=== PATIENT | female | born 1965 | race Two or more races ===

== ENCOUNTER 2022-01-18 11:21 | Emergency (ER) | payer MEDICARE, MEDICAID ==
[~2022-01-18] VITALS: Ht 160 cm; Wt 87.1 kg
[2022-01-18 11:36] VITALS: BP 148/97
[2022-01-18] MEDS ORDERED: CLINDAMYCIN 600 MG/4 ML VL IM ONE (12:00)
[2022-01-18] MEDS ORDERED: cefTRIAXone W LIDOCAINE 1 GM IM IM ONE (12:00)
[2022-01-18] MEDS ORDERED: CLIN300C8 PO (12:21)
[2022-01-18] MEDS ORDERED: CEPH-509 PO (12:21)
== END 2022-01-18 13:57 | disposition home or self-care (01) ==
LOC: ER 11:21
DX: L03.031 Cellulitis of right toe (principal); L03.032 Cellulitis of left toe; I11.0 Hypertensive heart disease with heart failure; I50.9 Heart failure, unspecified; E11.9 Type 2 diabetes mellitus without complications; Z88.0 Allergy status to penicillin
CPT/HCPCS: 96372; 99284; J0696

== ENCOUNTER 2023-06-27 15:07 | Emergency (ER) | payer MEDICARE, MEDICAID ==
[~2023-06-27] VITALS: Ht 160 cm; Wt 90.0 kg
[~2023-06-27 15:07] MED LIST: CEPH-509 PO; CLIN300C70 PO
[2023-06-27] MEDS ORDERED: methylPREDNISolone SOD SUCC 125 MG/2 ML VL IV ONE (15:30)
[2023-06-27] MEDS ORDERED: ALBUTEROL SULF 2.5 MG/0.5ML(0.5%) NEB SOLN HHN ONE (15:30)
[2023-06-27] MEDS ORDERED: IPRATROPIUM BROM 0.5 MG/2.5ML INH SOL HHN ONE (15:30)
[2023-06-27 15:51] LABS: Basophils # (auto) 0.1 10 ^3/uL (0-0.2); Basophils % (auto) 0.5 % (0.0-2.0); Eosinophils # (auto) 0.2 10 ^3/uL (0-0.8); Eosinophils % (auto) 2.3 % (0.0-7.0); Hemoglobin 14.9 g/dL (12.2-16.2); Lymphocytes % (auto) 18.9 % (10.0-50.0); Mean Corpuscular Hemoglobin 29.4 pg (28.0-32.0); Mean Corpuscular Hgb Conc. 33.1 g/dL (32.0-36.0); Mean Corpuscular Volume 88.8 fL (80.0-100.0); Monocytes # (auto) 0.6 10 ^3/uL (0-1.3); Monocytes % (auto) 5.8 % (0.0-12.0); Neutrophils # (auto) 7.5 10 ^3/uL (1.6-8.6); Neutrophils % (auto) 72.5 % (37.0-80.0); Nucleated Red Blood Cells % 0.1 %; Red Blood Cells 5.07 10^6/uL (4.0-5.20); Red Cell Distribution Width 14.9 % (11.8-14.3); White Blood Cell 10.4 10^3/uL (4.4-10.8)
[2023-06-27 16:11] LABS: Alanine Aminotransferase 107 U/L (7-40); Albumin 4.5 g/dL (3.2-4.8); Alkaline Phosphatase 134 U/L (46-116); Anion Gap 6 (5-15); Aspartate Aminotransferase 69 U/L (13-40); BUN/Creatinine Ratio 9.6 (10.0-20.0); Blood Urea Nitrogen 7 mg/dL (9-23); Calcium 8.9 mg/dL (8.7-10.4); Carbon Dioxide 31 mmol/L (20-30); Chloride 103 mmol/L (98-107); Glucose 95 mg/dL (74-106); Magnesium 1.9 mg/dL (1.6-2.6); Potassium 3.5 mmol/L (3.5-5.1); Sodium 140 mmol/L (136-145)
[2023-06-27 16:12] LABS: Bilirubin, Total 0.6 mg/dL (0.2-1.0); Total Protein 7.8 g/dL (5.7-8.2)
[2023-06-27 16:31] LABS: Urine WBC None Seen /hpf (0 - 5)
[2023-06-27 16:51] LABS: Urine Bacteria NONE SEEN /hpf (None Seen); Urine Blood Negative /uL (Negative); Urine Clarity Clear (Clear); Urine Color Colorless (Yellow); Urine Hyaline Cast FEW /lpf (0 - 2); Urine Protein, UAD Negative (Negative); Urine Specific Gravity 1.007 (1.001-1.035); Urine Urobilinogen Normal (Negative)
[2023-06-27] MEDS ORDERED: AZIT1POW PO (17:13)
[2023-06-27] MEDS ORDERED: METH4PAK PO (17:13)
[2023-06-27] MEDS ORDERED: ALBUAER3 IN (17:13)
[2023-06-27 20:25] VITALS: BP 166/87; PULSE 77; RESP 18; TEMP 98.9; O2SAT 96
[2023-06-27] MEDS ORDERED: methylPREDNISolone SOD SUCC 125 MG/2 ML VL IM ONE (20:30)
[2023-06-27] MEDS: cloNIDine HCL 0.1 MG TAB PO ONE ×2 (20:32→20:34)
== END 2023-06-27 20:46 | disposition home or self-care (01) ==
LOC: ER 15:07
DX: J20.9 Acute bronchitis, unspecified (principal); I11.0 Hypertensive heart disease with heart failure; I50.9 Heart failure, unspecified; E11.9 Type 2 diabetes mellitus without complications; E78.5 Hyperlipidemia, unspecified; R07.89 Other chest pain
CPT/HCPCS: 36415; 71046; 80053; 81001; 83735; 83880; 85025; 93005; 94644; 96372; 99285; J2930; J7644

== ENCOUNTER 2023-07-02 10:05 | Inpatient (IN) | payer BC, MEDICAID ==
[2023-07-02] VITALS (8 sets, daily range): BP systolic 146; BP diastolic 70; PULSE 67–76; RESP 18–23; TEMP 98; O2SAT 94–99
[~2023-07-02] VITALS: Ht 170.2 cm; Wt 108.8 kg
[~2023-07-02 10:05] MED LIST changes: +ALBUAER3 IN; +AZIT1POW PO; +METH4PAK PO
[2023-07-02] MEDS ORDERED: NITROGLYCERIN 2% OINT 1GM PKG TD ONE (10:30)
[2023-07-02 10:33] LABS: Basophils # (auto) 0 10 ^3/uL (0-0.2); Basophils % (auto) 0.3 % (0.0-2.0); Eosinophils # (auto) 0 10 ^3/uL (0-0.8); Eosinophils % (auto) 0.1 % (0.0-7.0); Hemoglobin 14.7 g/dL (12.2-16.2); Lymphocytes # (auto) 1.7 10 ^3/uL (0.4-5.4); Lymphocytes % (auto) 12.5 % (10.0-50.0); Mean Corpuscular Hemoglobin 29.5 pg (28.0-32.0); Mean Corpuscular Hgb Conc. 32.8 g/dL (32.0-36.0); Mean Corpuscular Volume 89.9 fL (80.0-100.0); Monocytes % (auto) 7.2 % (0.0-12.0); Neutrophils # (auto) 10.6 10 ^3/uL (1.6-8.6); Neutrophils % (auto) 79.9 % (37.0-80.0); Red Cell Distribution Width 14.9 % (11.8-14.3); White Blood Cell 13.3 10^3/uL (4.4-10.8)
[2023-07-02] MEDS ORDERED: methylPREDNISolone SOD SUCC 125 MG/2 ML VL IV ONE (10:45)
[2023-07-02] MEDS ORDERED: cloNIDine HCL 0.1 MG TAB PO ONE (10:45)
[2023-07-02 10:52] LABS: INR 1.03 (0.9-1.15); Prothrombin Time 10.8 sec (9.3-11.8)
[2023-07-02 10:58] LABS: Alanine Aminotransferase 109 U/L (7-40); Albumin 4.2 g/dL (3.2-4.8); Alkaline Phosphatase 108 U/L (46-116); Anion Gap 8 (5-15); Aspartate Aminotransferase 37 U/L (13-40); Blood Urea Nitrogen 14 mg/dL (9-23); Calcium 9.3 mg/dL (8.5-10.1); Carbon Dioxide 27 mmol/L (20-30); Chloride 104 mmol/L (98-107); Glucose 182 mg/dL (74-106); Potassium 4.1 mmol/L (3.5-5.1); Sodium 139 mmol/L (136-145)
[2023-07-02 10:59] LABS: Bilirubin, Total 0.3 mg/dL (0.2-1.0); Total Protein 7.1 g/dL (5.7-8.2)
[2023-07-02] MEDS ORDERED: IOHEXOL 350 MG/ML 100ML IJ ONE (11:27)
[2023-07-02 14:03] LABS: Amphetamine Screen, Urine Neg (NEGATIVE)
[2023-07-02 14:04] LABS: Barbiturate Scree,Urine Neg (NEGATIVE); Benzodiazephine Screen, Urine Neg (NEGATIVE); Cannabinoid Screen, Urine Neg (NEGATIVE); Cocaine Screen, Urine Neg (NEGATIVE); Opiate Scree,Urine Neg (NEGATIVE); Phencyclidine Screen, Urine Neg (NEGATIVE)
[2023-07-02 14:18] LABS: Urine Bacteria NONE SEEN /hpf (None Seen); Urine Blood Negative /uL (Negative); Urine Clarity Clear (Clear); Urine Color Yellow (Yellow); Urine Protein, UAD 1+ (Negative); Urine Specific Gravity 1.022 (1.001-1.035); Urine Urobilinogen Normal (Negative); Urine WBC 1 /hpf (0 - 5); Urine pH 6.5 (5.0-8.0)
[2023-07-02] MEDS ORDERED: DOCUSATE SOD 100 MG CAP PO PRN (14:30)
[2023-07-02] MEDS ORDERED: ONDANSETRON HCL 4 MG/2 ML VIAL IV PRN (14:30)
[2023-07-02] MEDS ORDERED: DEXTROSE (50%) 50ML SYRG IV PRN (14:30)
[2023-07-02] MEDS: InsuLIN REG 1unit/0.01ml Soln (100units/ml) SC SCH ×2 (17:52→23:37)
[2023-07-02] MEDS: ACCU-CHEK COMFORT CURVE STRIP VI SCH ×2 (17:53→23:23)
[2023-07-02] MEDS: IPRATROPIUM BROM 0.5 MG/2.5ML INH SOL NEB SCH ×2 (18:33→22:14)
[2023-07-02] MEDS: ALBUTEROL SULF 2.5 MG/0.5ML(0.5%) NEB SOLN NEB SCH ×2 (18:33→22:14)
[2023-07-02] MEDS ORDERED: CARV12.544 PO (18:59)
[2023-07-02] MEDS ORDERED: [UNRECOGNIZED DRUG - CODE] SC (18:59)
[2023-07-02] MEDS ORDERED: AZIT1POW12 PO (18:59)
[2023-07-02] MEDS ORDERED: POTA-180 PO (18:59)
[2023-07-02] MEDS ORDERED: FURO40TA4 PO (18:59)
[2023-07-02] MEDS ORDERED: METH4PAK3 PO (18:59)
[2023-07-02] MEDS ORDERED: METF-370 PO (18:59)
[2023-07-02] MEDS ORDERED: IBUP-1455 PO (18:59)
[2023-07-02] MEDS ORDERED: ALBU108A5 INH (18:59)
[2023-07-02] MEDS: hydrALAZINE HCL 20 MG/ML VL IV PRN (20:48)
[2023-07-02 22:59] LABS: COVID19 ANTIGEN SOFIA FIA NEGATIVE (NEGATIVE); Rapid Influenza A Negative (Negative); Rapid Influenza B Negative (Negative)
[2023-07-02] MEDS: methylPREDNISolone SOD SUCC 125 MG/2 ML VL IV SCH (23:34)
[2023-07-02] MEDS: CARVEDILOL 12.5 MG TAB PO SCH (23:36)
[2023-07-03] VITALS (22 sets, daily range): BP systolic 132–180; BP diastolic 72–94; PULSE 48–84; RESP 16–24; TEMP 97.3–98.8; O2SAT 91–99
[2023-07-03] MEDS: ALBUTEROL SULF 2.5 MG/0.5ML(0.5%) NEB SOLN NEB SCH ×6 (01:58→22:00)
[2023-07-03] MEDS: IPRATROPIUM BROM 0.5 MG/2.5ML INH SOL NEB SCH ×6 (01:58→22:00)
[2023-07-03] MEDS: hydrALAZINE HCL 20 MG/ML VL IV PRN ×2 (02:02→16:14)
[2023-07-03] MEDS ORDERED: TEMAZEPAM 15 MG CAP PO ONE (04:45)
[2023-07-03] MEDS: ACCU-CHEK COMFORT CURVE STRIP VI SCH ×4 (06:07→21:23)
[2023-07-03] MEDS: methylPREDNISolone SOD SUCC 125 MG/2 ML VL IV SCH ×3 (06:07→21:16)
[2023-07-03] MEDS: InsuLIN REG 1unit/0.01ml Soln (100units/ml) SC SCH ×4 (06:09→21:24)
[2023-07-03 07:17] LABS: Basophils # (auto) 0 10 ^3/uL (0-0.2); Basophils % (auto) 0.2 % (0.0-2.0); Eosinophils # (auto) 0 10 ^3/uL (0-0.8); Hematocrit 43.6 % (36.0-46.0); Hemoglobin 14.3 g/dL (12.2-16.2); Lymphocytes # (auto) 0.9 10 ^3/uL (0.4-5.4); Lymphocytes % (auto) 6.7 % (10.0-50.0); Mean Corpuscular Hemoglobin 29.9 pg (28.0-32.0); Mean Corpuscular Hgb Conc. 32.8 g/dL (32.0-36.0); Mean Corpuscular Volume 91.4 fL (80.0-100.0); Monocytes # (auto) 0.4 10 ^3/uL (0-1.3); Monocytes % (auto) 2.7 % (0.0-12.0); Neutrophils # (auto) 12.6 10 ^3/uL (1.6-8.6); Neutrophils % (auto) 90.4 % (37.0-80.0); Red Blood Cells 4.77 10^6/uL (4.0-5.20); Red Cell Distribution Width 15.1 % (11.8-14.3)
[2023-07-03 07:36] LABS: Alanine Aminotransferase 87 U/L (7-40); Alkaline Phosphatase 93 U/L (46-116); Anion Gap 11 (5-15); BUN/Creatinine Ratio 20.8 (10.0-20.0); Blood Urea Nitrogen 15 mg/dL (9-23); Calcium 9.4 mg/dL (8.5-10.1); Carbon Dioxide 25 mmol/L (20-30); Chloride 101 mmol/L (98-107); Glucose 269 mg/dL (74-106); Sodium 137 mmol/L (136-145)
[2023-07-03 07:37] LABS: Albumin 3.9 g/dL (3.2-4.8); Aspartate Aminotransferase 18 U/L (13-40); Bilirubin, Total 0.4 mg/dL (0.2-1.0); Total Protein 6.8 g/dL (5.7-8.2)
[2023-07-03] MEDS: ASPirin 81 mg TAB PO SCH (09:35)
[2023-07-03] MEDS: LOSARTAN POTASSIUM 50 MG TAB PO SCH (09:36)
[2023-07-03] MEDS: CARVEDILOL 12.5 MG TAB PO SCH ×2 (09:36→21:28)
[2023-07-03] MEDS: FUROSEMIDE 40 MG/4 ML VIAL IV SCH (09:37)
[2023-07-03] MEDS: PANTOPRAZOLE 40 MG/10 ML VIAL INJ IV SCH (09:37)
[2023-07-03] MEDS ORDERED: LORazepam 2MG/ML-1ML VIAL IV PRN (14:30)
[2023-07-03] MEDS: MORPHINE SULFATE INJ 2 MG/ml SYRG IV PRN (23:27)
[2023-07-04] VITALS (17 sets, daily range): BP systolic 110–169; BP diastolic 59–101; PULSE 52–82; RESP 16–22; TEMP 97.2–98.9; O2SAT 92–99
[2023-07-04] MEDS: hydrALAZINE HCL 20 MG/ML VL IV PRN (00:40)
[2023-07-04] MEDS: ALBUTEROL SULF 2.5 MG/0.5ML(0.5%) NEB SOLN NEB SCH ×6 (02:00→21:59)
[2023-07-04] MEDS: IPRATROPIUM BROM 0.5 MG/2.5ML INH SOL NEB SCH ×6 (02:00→21:58)
[2023-07-04] MEDS: MORPHINE SULFATE INJ 2 MG/ml SYRG IV PRN (03:42)
[2023-07-04] MEDS: methylPREDNISolone SOD SUCC 125 MG/2 ML VL IV SCH ×3 (06:07→22:00)
[2023-07-04] MEDS: ACCU-CHEK COMFORT CURVE STRIP VI SCH ×4 (06:07→21:45)
[2023-07-04] MEDS: InsuLIN REG 1unit/0.01ml Soln (100units/ml) SC SCH ×4 (06:11→21:52)
[2023-07-04] MEDS: ENOXAPARIN SOD 40 MG/0.4 ML SYRINGE SC SCH (10:32)
[2023-07-04] MEDS: PANTOPRAZOLE 40 MG/10 ML VIAL INJ IV SCH (10:32)
[2023-07-04] MEDS: FUROSEMIDE 40 MG/4 ML VIAL IV SCH (10:33)
[2023-07-04] MEDS: levoFLOXacin 500MG 100 ML IV SCH (10:33)
[2023-07-04] MEDS: LOSARTAN POTASSIUM 50 MG TAB PO SCH (10:34)
[2023-07-04] MEDS: ASPirin 81 mg TAB PO SCH (10:34)
[2023-07-04] MEDS: NICOTINE 21MG/24 HR TOPICAL PATCH TD SCH (10:34)
[2023-07-04] MEDS: CARVEDILOL 12.5 MG TAB PO SCH ×2 (10:35→21:47)
[2023-07-04] MEDS: LORazepam 0.5 MG TAB PO PRN (21:49)
[2023-07-05] VITALS (21 sets, daily range): BP systolic 140–155; BP diastolic 80–93; PULSE 18–120; RESP 18–22; TEMP 97.5–98.5; O2SAT 90–97
[2023-07-05] MEDS: ALBUTEROL SULF 2.5 MG/0.5ML(0.5%) NEB SOLN NEB SCH ×6 (02:10→22:06)
[2023-07-05] MEDS: IPRATROPIUM BROM 0.5 MG/2.5ML INH SOL NEB SCH ×6 (02:10→22:06)
[2023-07-05] MEDS: ACCU-CHEK COMFORT CURVE STRIP VI SCH ×3 (06:09→17:31)
[2023-07-05] MEDS: methylPREDNISolone SOD SUCC 125 MG/2 ML VL IV SCH ×3 (06:15→21:43)
[2023-07-05] MEDS: InsuLIN REG 1unit/0.01ml Soln (100units/ml) SC SCH ×4 (06:20→22:00)
[2023-07-05] MEDS: CARVEDILOL 12.5 MG TAB PO SCH ×2 (10:57→21:44)
[2023-07-05] MEDS: LOSARTAN POTASSIUM 50 MG TAB PO SCH (10:57)
[2023-07-05] MEDS: ASPirin 81 mg TAB PO SCH (10:58)
[2023-07-05] MEDS: FUROSEMIDE 40 MG/4 ML VIAL IV SCH (10:58)
[2023-07-05] MEDS: ENOXAPARIN SOD 40 MG/0.4 ML SYRINGE SC SCH (10:58)
[2023-07-05] MEDS: PANTOPRAZOLE 40 MG/10 ML VIAL INJ IV SCH (10:58)
[2023-07-05] MEDS: levoFLOXacin 500MG 100 ML IV SCH (10:59)
[2023-07-05] MEDS: NICOTINE 21MG/24 HR TOPICAL PATCH TD SCH (10:59)
[2023-07-05] MEDS: LORazepam 0.5 MG TAB PO PRN ×2 (14:27→21:59)
[2023-07-05] MEDS: hydrALAZINE HCL 20 MG/ML VL IV PRN (21:59)
[2023-07-06] VITALS (18 sets, daily range): BP systolic 98–150; BP diastolic 58–101; PULSE 61–90; RESP 16–24; TEMP 97.6–97.9; O2SAT 91–99
[2023-07-06] MEDS: ACCU-CHEK COMFORT CURVE STRIP VI SCH ×5 (00:24→21:55)
[2023-07-06] MEDS: IPRATROPIUM BROM 0.5 MG/2.5ML INH SOL NEB SCH ×6 (02:30→22:28)
[2023-07-06] MEDS: ALBUTEROL SULF 2.5 MG/0.5ML(0.5%) NEB SOLN NEB SCH ×6 (02:30→22:28)
[2023-07-06] MEDS: methylPREDNISolone SOD SUCC 125 MG/2 ML VL IV SCH ×3 (06:35→21:34)
[2023-07-06] MEDS: InsuLIN REG 1unit/0.01ml Soln (100units/ml) SC SCH ×4 (06:38→21:55)
[2023-07-06] MEDS: levoFLOXacin 500MG 100 ML IV SCH (08:42)
[2023-07-06] MEDS: ASPirin 81 mg TAB PO SCH (08:43)
[2023-07-06] MEDS: CARVEDILOL 12.5 MG TAB PO SCH ×2 (08:43→21:28)
[2023-07-06] MEDS: ENOXAPARIN SOD 40 MG/0.4 ML SYRINGE SC SCH (08:43)
[2023-07-06] MEDS: LORazepam 0.5 MG TAB PO PRN ×3 (08:43→21:27)
[2023-07-06] MEDS: LOSARTAN POTASSIUM 50 MG TAB PO SCH (08:43)
[2023-07-06] MEDS: NICOTINE 21MG/24 HR TOPICAL PATCH TD SCH (08:44)
[2023-07-06] MEDS: FUROSEMIDE 40 MG/4 ML VIAL IV SCH (08:44)
[2023-07-06] MEDS: MORPHINE SULFATE INJ 2 MG/ml SYRG IV PRN (08:45)
[2023-07-06] MEDS: hydrALAZINE HCL 20 MG/ML VL IV PRN (14:02)
[2023-07-06] MEDS ORDERED: ASPI-325 PO (14:31)
[2023-07-06] MEDS ORDERED: CAR125T PO (14:31)
[2023-07-06] MEDS ORDERED: LOSA50TA46 PO (14:31)
[2023-07-07] VITALS (20 sets, daily range): BP systolic 140–157; BP diastolic 82–96; PULSE 70–95; RESP 16–20; TEMP 97.8–98.4; O2SAT 90–100
[2023-07-07] MEDS: IPRATROPIUM BROM 0.5 MG/2.5ML INH SOL NEB SCH ×6 (02:34→22:50)
[2023-07-07] MEDS: ALBUTEROL SULF 2.5 MG/0.5ML(0.5%) NEB SOLN NEB SCH ×6 (02:34→22:51)
[2023-07-07] MEDS: methylPREDNISolone SOD SUCC 125 MG/2 ML VL IV SCH ×3 (06:00→22:02)
[2023-07-07] MEDS: ACCU-CHEK COMFORT CURVE STRIP VI SCH ×4 (06:49→21:53)
[2023-07-07] MEDS: InsuLIN REG 1unit/0.01ml Soln (100units/ml) SC SCH ×4 (06:51→22:04)
[2023-07-07] MEDS: levoFLOXacin 500MG 100 ML IV SCH (09:46)
[2023-07-07] MEDS: ENOXAPARIN SOD 40 MG/0.4 ML SYRINGE SC SCH (09:46)
[2023-07-07] MEDS: ASPirin 81 mg TAB PO SCH (09:48)
[2023-07-07] MEDS: FUROSEMIDE 40 MG/4 ML VIAL IV SCH (09:48)
[2023-07-07] MEDS: NICOTINE 21MG/24 HR TOPICAL PATCH TD SCH (09:49)
[2023-07-07] MEDS: CARVEDILOL 12.5 MG TAB PO SCH ×2 (09:49→22:02)
[2023-07-07] MEDS: LOSARTAN POTASSIUM 50 MG TAB PO SCH (09:49)
[2023-07-07] MEDS: LORazepam 0.5 MG TAB PO PRN (22:02)
[2023-07-08] VITALS (17 sets, daily range): BP systolic 143–162; BP diastolic 79–96; PULSE 65–93; RESP 16–21; TEMP 97.4–98.8; O2SAT 92–100
[2023-07-08] MEDS: ALBUTEROL SULF 2.5 MG/0.5ML(0.5%) NEB SOLN NEB SCH ×5 (02:57→18:41)
[2023-07-08] MEDS: IPRATROPIUM BROM 0.5 MG/2.5ML INH SOL NEB SCH ×5 (02:57→18:41)
[2023-07-08] MEDS: ACCU-CHEK COMFORT CURVE STRIP VI SCH ×3 (06:32→17:26)
[2023-07-08] MEDS: InsuLIN REG 1unit/0.01ml Soln (100units/ml) SC SCH ×3 (06:40→17:26)
[2023-07-08] MEDS: methylPREDNISolone SOD SUCC 125 MG/2 ML VL IV SCH ×2 (06:40→14:35)
[2023-07-08] MEDS: ASPirin 81 mg TAB PO SCH (08:56)
[2023-07-08] MEDS: CARVEDILOL 12.5 MG TAB PO SCH (08:56)
[2023-07-08] MEDS: LOSARTAN POTASSIUM 50 MG TAB PO SCH (08:56)
[2023-07-08] MEDS: ENOXAPARIN SOD 40 MG/0.4 ML SYRINGE SC SCH (08:56)
[2023-07-08] MEDS: levoFLOXacin 500MG 100 ML IV SCH (08:57)
[2023-07-08] MEDS: NICOTINE 21MG/24 HR TOPICAL PATCH TD SCH (08:57)
[2023-07-08] MEDS: FUROSEMIDE 40 MG/4 ML VIAL IV SCH (08:57)
[2023-07-08] MEDS ORDERED: ALPRAZolam 0.5 MG TAB PO PRN (14:15)
[2023-07-08] MEDS: MORPHINE SULFATE INJ 2 MG/ml SYRG IV PRN (14:35)
[2023-07-08 15:19] LABS: Chloride 94 mmol/L (98-107); Potassium 4.6 mmol/L (3.5-5.1)
[2023-07-08 15:20] LABS: Anion Gap 8 (5-15); Calcium 8.9 mg/dL (8.5-10.1); Carbon Dioxide 28 mmol/L (20-30)
[2023-07-08 15:25] LABS: BUN/Creatinine Ratio 21.8 (10.0-20.0); Blood Urea Nitrogen 22 mg/dL (9-23)
[2023-07-08 15:42] LABS: Sodium 130 mmol/L (136-145)
[2023-07-08 15:43] LABS: Glucose 410 mg/dL (74-106)
[2023-07-08] MEDS ORDERED: INSULIN LANTUS (GLARGINE) 1 /0.01ml (100units/ml) SC ONE (16:30)
[2023-07-08] MEDS ORDERED: INSULIN LANTUS (GLARGINE) 1 /0.01ml (100units/ml) SC SCH (22:00)
== END 2023-07-08 20:23 | disposition home or self-care (01) | DRG 189 ==
LOC: ER 10:05 → EDBD 10:05 → EDUNIT# 10:05 → TELE 14:43 → TELE-WESTW 23:04 → WEST WING 07-03 14:43
PROVIDERS: ADMIT Internal Medicine; ATTEND Internal Medicine
DX: J96.01 Acute respiratory failure with hypoxia (principal); J44.1 Chronic obstructive pulmonary disease with (acute) exacerbation; I16.1 Hypertensive emergency; J98.11 Atelectasis; E87.3 Alkalosis; I67.4 Hypertensive encephalopathy; I50.42 Chronic combined systolic (congestive) and diastolic (congestive) heart failure; G93.1 Anoxic brain damage, not elsewhere classified; I11.0 Hypertensive heart disease with heart failure; Z20.822 Contact with and (suspected) exposure to COVID-19; E11.65 Type 2 diabetes mellitus with hyperglycemia; E78.5 Hyperlipidemia, unspecified; K76.0 Fatty (change of) liver, not elsewhere classified; R16.0 Hepatomegaly, not elsewhere classified; E66.9 Obesity, unspecified; F17.210 Nicotine dependence, cigarettes, uncomplicated; D72.829 Elevated white blood cell count, unspecified; M48.00 Spinal stenosis, site unspecified; Z68.37 Body mass index [BMI] 37.0-37.9, adult; Z82.49 Family history of ischemic heart disease and other diseases of the circulatory system; Z83.3 Family history of diabetes mellitus; Z88.0 Allergy status to penicillin
CPT/HCPCS: 36415; 36600; 70450; 71045; 71275; 72148; 80048; 80053; 80307; 81001; 82805; 82962; 83036; 83880; 84484; 85025; 85379; 85610; 85730; 87426; 87804; 93005; 93971; 94640; 96372; 96374; 96376; C9113; G0378; J1815; J1956